=== PATIENT | female | born 1990 | race Caucasian/White ===

== ENCOUNTER 2021-10-02 10:18 | Emergency (ER) | payer BC, SELFPAY ==
--- NOTE | ~2021-10-02 | XR_ITS ---
EXAMINATION: XR foot RT min 3V DATE: 10/02/2021 11:05 INDICATION: Right foot pain TECHNIQUE: Dorsoplantar, lateral, and 2 oblique views of the right foot were obtained. COMPARISON: None. FINDINGS: There is no fracture, dislocation, or subluxation. The bones, soft tissues, and joint space s are normal. IMPRESSION: 1. No acute osseous abnormality. Reviewed, dictated and finalized at location B.
[2021-10-02 11:00] VITALS: BP 114/84; PULSE 108; RESP 18; TEMP 36.4; O2SAT 99
--- NOTE | 2021-10-02 11:31 | ED.LOWEXIN ---
HPI - Extremity Injury (Lower) General Chief Complaint: Extremity Injury, Lower Stated Complaint: Rt Ankle Pain Time Seen by Provider: 10/02/21 11:20 Source: patient, RN notes reviewed and old records reviewed Mode of arrival: ambulatory Limitations: no limitations History of Present Illness HPI Narrative: 30-year-old female who presents to [facility] with complaints of injury to her right foot which occurred yesterday p.m. while walking her dog. Patient states her foot got caught in the leash and it went sideways but did not fall. Patient is having difficulty applying weight to her right foot today with swelling and pain with tenderness to dorsal proximal area of foot. Patient has strong pedal pulses with no obvious deformity noted, increased pain with movement of foot and weight bearing. Patient states past history of previous ankle sprains. MD complaint: foot injury Injury: Right: foot Type of Injury: inversion Place: street/outdoors Severity: moderate Relieving factors: NSAID, cold therapy and rest Exacerbating factors: weight bearing Treatments prior to arrival: cold therapy, NSAIDS and other Related Data Home Medications Medication Instructions Recorded Confirmed norethindrone-e.estradiol-iron [Lo 1 tablet PO DAILY 10/02/21 10/02/21 Loestrin Fe] venlafaxine 150 mg PO BID 10/02/21 10/02/21 Allergies Allergy/AdvReac Type Severity Reaction Status Date / Time No Known Allergies Allergy Verified 10/02/21 11:14 Review of Systems Review of Systems: CONSTITUTIONAL: Denies fever, chills, or sweats. EYES: Denies visual changes, redness, or discharge. ENT: Denies rhinorrhea, congestion, sore throat, or otalgia. CARDIOVASCULAR: Denies chest pain, palpitations, or edema. RESPIRATORY: Denies cough or dyspnea. GASTROINTESTINAL: Denies abdominal pain, nausea, vomiting, or diarrhea. GENITOURINARY: Denies dysuria or hematuria. SKIN: Denies rash or itching. MUSCULOSKELETAL: Denies back pain,positive for right foot pain, or myalgia. NEUROLOGIC: Denies headache, numbness, or weakness. PSYCHIATRIC: Positive for history of anxiety or depression. All systems reviewed & are unremarkable except as noted in HPI and below PMFSH Past Medical History Medical History (Updated 10/02/21 @ 23:35 by Myla Kay NP) Anxiety and depression Herpes HPV (human papilloma virus) infection Kidney stones Patella fracture right Surgical History Surgical History (Updated 10/02/21 @ 23:30 by Myla Kay NP) No history of previous surgery Social History Social History (Updated 10/02/21 @ 23:29 by Myla Kay NP) Smoking status: Never smoker Alcohol intake: current Alcohol use details: social Substance use type: does not use Living arrangements: with family Gender identity (if verbalized by the patient): Female Comments At time of signature agree with nursing documentation of past medical surgical, social and family history, There is no pertinnt past family history relevant to presenting complaint. Exam Narrative: GENERAL: Well-appearing, well-nourished, and in no acute distress. HEAD: Normocephalic, atraumatic. EYES: PERRLA and EOMI. ENT: Nares clear, no rhinorrhea or epistaxis. Mucous membranes moist.TM's normal with good light reflex, throat pink with no lesions or exudates or tonsil swelling. NECK: Supple.no lymphadenopathy CHEST: Clear to auscultation. No respiratory distress.SAO2 99% on room air HEART: Regular rate and rhythm. No murmur heard. Normal peripheral pulses. ABDOMEN: Soft, nontender, nondistended, normal active bowel sounds. EXTREMITIES: Normal range of motion. No edema.Exception noted to swelling with pain to proximal dorsal right foot with noted swelling. Mobility intact but with pain, strong pedal and posterior tibial pulses right foot, foot warm and pink, denies any tingling or numbness to right foot. SKIN: Warm, dry, no rash. NEURO: No focal deficits. Alert and oriented x3.
== END 2021-10-02 11:44 | disposition home or self-care (01) ==
PROVIDERS: Emergency Provider Registered Nurse; PCP Family Medicine
DX: S93.601A Unspecified sprain of right foot, initial encounter (principal); X58.XXXA Exposure to other specified factors, initial encounter; Y93.K1 Activity, walking an animal; F41.9 Anxiety disorder, unspecified; F32.A Depression, unspecified
CPT/HCPCS: 73630; 99203; G0463

== ENCOUNTER 2022-09-13 09:29 | Emergency (ER) | payer OTHER, SELFPAY ==
[2022-09-13 09:53] VITALS: BP 129/80; PULSE 110; RESP 20; TEMP 36.8; O2SAT 99
--- NOTE | 2022-09-13 10:23 | ED.URI ---
HPI - URI/Sore Throat General Chief Complaint: Upper Respiratory Infection Stated Complaint: sorethroat,bilateral ear pain Time Seen by Provider: 09/13/22 10:05 Source: patient Mode of arrival: ambulatory Limitations: no limitations History of Present Illness HPI Narrative: Patient presents today complaining of sore throat and bilateral ear pain since last night. Denies any additional symptoms. Reports daughter was ill with viral illness last week. Currently rates her pain 8/10 into the dose of NyQuil last night without relief. Pain increases with swallowing. Related Data Home Medications Medication Instructions Recorded Confirmed norethindrone 1 mg-ethinyl 1 tablet PO DAILY 10/02/21 09/13/22 estradiol 10 mcg (24)-iron 10 mcg(2) tablet (Lo Loestrin Fe) venlafaxine 37.5 mg 37.5 mg PO DAILY 09/13/22 09/13/22 capsule,extended release 24 hr Allergies Allergy/AdvReac Type Severity Reaction Status Date / Time No Known Allergies Allergy Verified 09/13/22 10:12 Review of Systems Review of Systems: CONSTITUTIONAL: Denies body aches, fever, chills, or sweats. EYES: Denies visual changes, redness, or discharge. ENT: Denies rhinorrhea, congestion.+ sore throat, bilateral ear pain CARDIOVASCULAR: Denies chest pain, palpitations, or edema. RESPIRATORY: Denies cough or dyspnea. GASTROINTESTINAL: Denies abdominal pain, nausea, vomiting, or diarrhea. GENITOURINARY: Denies dysuria or hematuria. SKIN: Denies rash, itching, or wounds. MUSCULOSKELETAL: Denies back pain, joint pain, or myalgia. NEUROLOGIC: Denies headache, numbness, tingling, or weakness. PSYCH: Denies depression or anxiety. [facility] [place] Past Medical History Medical History Anxiety and depression Herpes HPV (human papilloma virus) infection Kidney stones Patella fracture right Surgical History Surgical History No history of previous surgery Social History Social History Smoking status: Never smoker Alcohol intake: current Alcohol use details: social Substance use type: does not use Living arrangements: with family Gender identity (if verbalized by the patient): Female Comments At time of signature, I have reviewed and agree with nursing past medical, surgical, social and family history unless otherwise noted. Please see nursing chart for further information. There is no relevant family history pertinent to the presenting complaint Exam Narrative: GENERAL: Well-appearing, well-nourished, and in no acute distress. HEAD: Normocephalic, atraumatic. EYES: EOMI. No redness or drainage. Conjunctivae normal. ENT: Mucous membranes pink and moist. Nares clear. No rhinorrhea. TMs normal bilaterally. Throat moderately erythematous with mild edema. No exudate. Uvula midline. NECK: Normal AROM. Supple. No lymphadenopathy. CHEST: No respiratory distress. Clear to auscultation. HEART: Regular rate and rhythm. No murmur appreciated. Normal peripheral pulses. EXTREMITIES: Normal range of motion. No edema. SKIN: Warm, dry, no rash. Capillary refill normal. Normal skin turgor. NEURO: No focal deficits. Alert and oriented x3. Gait steady. PSYCH: Normal affect. No signs of depression or anxiety. Course Course Level of Care: Express Care Visit Vital Signs Vital signs: Vital Signs Temperature 98.2 F 09/13/22 09:53 Pulse Rate 110 H 09/13/22 09:53 Respiratory Rate 20 09/13/22 09:53 Blood Pressure 129/80 09/13/22 09:53 Pulse Oximetry 99 09/13/22 09:53 Oxygen Delivery Room Air 09/13/22 09:53 Temperature 98.2 F 09/13/22 09:53 Pulse Rate 110 H 09/13/22 09:53 Respiratory Rate 20 09/13/22 09:53 Blood Pressure 129/80 09/13/22 09:53 Pulse Oximetry 99 09/13/22 09:53 Oxygen Delivery Room Air 09/13/22 09:53 Reviewed. Pt has
== END 2022-09-13 10:30 | disposition home or self-care (01) ==
PROVIDERS: Emergency Provider Nurse Practitioner
DX: J02.9 Acute pharyngitis, unspecified (principal)
CPT/HCPCS: 87081; 87147; 87880; 99213; G0463